=== PATIENT | male | born 1960 | race Caucasian/White ===

== ENCOUNTER 2024-01-30 09:00 | Outpatient (RCR) | payer MEDICARE, BC, SELFPAY | END 2024-05-29 23:59 | disposition home or self-care (01) | PROVIDERS: PCP Family Medicine; Visit Provider Family Medicine | DX: M25.552 Pain in left hip (principal); M16.12 Unilateral primary osteoarthritis, left hip; R29.898 Other symptoms and signs involving the musculoskeletal system; R26.2 Difficulty in walking, not elsewhere classified; Z51.89 Encounter for other specified aftercare | CPT/HCPCS: 97110; 97162 ==

== ENCOUNTER 2024-09-20 11:50 | Outpatient (CLI) | payer MEDICARE, BC, SELFPAY | END 2024-09-20 11:51 | disposition home or self-care (01) | LOC: AMB 09-21 01:11 | PROVIDERS: PCP Family Medicine; Visit Provider Family Medicine | DX: R55 Syncope and collapse (principal) | CPT/HCPCS: A0425; A0427 ==

== ENCOUNTER 2024-09-20 12:33 | Emergency (ER) | payer MEDICARE, BC, SELFPAY ==
[2024-09-20 12:39] VITALS: BP 103/69; PULSE 87; RESP 18; TEMP 36.6; O2SAT 96; BMI 39.2
--- NOTE | 2024-09-20 12:46 | ED.GENADULT ---
HPI - General Adult General Chief complaint: Syncope/Fainted Stated complaint: Syncopal Time Seen by Provider: 09/20/24 12:40 History of Present Illness HPI narrative: Patient presents to the emergency department via EMS after he had an episode of syncope. Patient was exercising with weights and sat in the sauna after. Patient went to join his in the sauna after the hot tub where he had the episode . Patient has had an episode like this in the past where he had an episode of syncope in the hot tub. Patient has a heart valve hx and has regular follow 64-year-old man presenting to the emergency department after an apparent syncopal event. This would not be the 1st time he has passed out. Has been evaluated before for similar having collapsed into a hot tub. Does have a history of hypertension. Was switched from lisinopril to olmesartan due to generally lower blood pressures as he reports it. Today had been in a sauna after exercising with weights. Passed out and told into his spouse who tried to catch him. She is also in the emergency department injured. Had relatively recent echocardiogram and is suspected to have a bicuspid aortic valve but no intervention is planned. Is not experiencing any pain. Did not have chest pain or palpitations. No nausea. Feels pretty good at this point. Was noted by EMS to have rather low pressures initially. Related Data Home Medications ?Medication ?Instructions ?Recorded ?Confirmed rosuvastatin 10 mg tablet 10 mg PO QPM 08/20/24 09/20/24 olmesartan 5 mg tablet 5 mg PO DAILY 09/20/24 09/20/24 Allergies Allergy/AdvReac Type Severity Reaction Status Date / Time No Known Drug Allergies Allergy Verified 09/20/24 12:45 Review of Systems Status of ROS: Reports: 6 or more systems reviewed and unremarkable except as noted in History and below [facility] Social History Smoking Status: Never smoker How often do you have a drink containing alcohol: never How often do you have six or more drinks on one occasion: Never AUDIT-C Alcohol total score: 0 Non-prescribed substance use: denies use service: No Exam Narrative: Exam Narrative: Pleasant. NAD. Alert. Cranial nerves 2-12 intact. Pupils are equal and brisk. Head looks to be atraumatic. Moving all extremities without difficulty. No significant injury on extremity appreciated. Lungs are clear. Heart in regular rate and rhythm. There is a 2/6 systolic murmur across the precordium loudest at the right sternal border. Extremities also without edema. Const: Vital Signs, click to edit/add: Vital Signs - 24 hr 09/20/24 12:39 09/20/24 13:31 Temperature 98 F Pulse Rate [Right Pulse Oximeter] 87 Pulse Rate [orthos tatic lying] 85 Pulse Rate [orthos tatic sitting] 90 Pulse Rate [orthos tatic standing] 89 Respiratory Rate 18 Blood Pressure [Ri ght Upper Arm] 103/69 Blood Pressure [or thostatic lying] 103/64 Blood Pressure [or thostatic sitting] 113/69 Blood Pressure [or thostatic standing ] 111/76 Pulse Oximetry 96 Oxygen Delivery Me thod Room Air Documenting provider has reviewed patient's vital signs: yes Course Vital Signs Vital signs: Initial Vital Signs Temperature 98 F 09/20/24 12:39 Temperature Source Temporal Artery Scan 09/20/24 12:39 Pulse Rate 87 09/20/24 12:39 Pulse Rhythm Regular 09/20/24 12:39 Pulse Strength 3+ Normal 09/20/24 12:39 Respiratory Rate 18 09/20/24 12:39 Blood Pressure 103/69 09/20/24 12:39 Blood Pressure Mean 80 09/20/24 12:39 Blood Pressure Position Semi-Fowlers 09/20/24 12:39 Pulse Oximetry 96 09/20/24 12:39 Oxygen Delivery Method Room Air 09/20/24 12:39 Vital Signs Temperature 98 F 09/20/24 12:39 Pulse Rate 87 09/20/24 12:39 Respiratory Rate 18 09/20/24 12:39 Blood Pressure 103/69 09/20/24 12:39 Pulse Oximetry 96 09/20/24 12:39 Oxygen Delivery Method Room Air 09/20/24 12:39 Temperature 98 F 09/20/24 12:39 Pulse Rate 85 09/20/24 13:31 Respiratory Rate 18 09/20/24 12:39 Blood Pressure 103/64 09/20/24 13:31 Pulse Oximetry 96 09/20/24 12:39 Oxygen Delivery Method Room Air 09/20/24 12:39 Medical Decision Making MDM Narrative Medical decision making narrative: Able to locate labs from about 6 months ago. Looks to have a creatinine of 1.21 which is improved from November of this year. Perhaps this was partly the reason for change in antihypertensive. Apparently was not anemic at that time. Provided some event on monitor during time in the ER or not improving orthostatic early, I think can defer further workup. This is not a new event. This appears to have been a vasovagal event, syncope, precipitated by heat exposure. Did receive some IV hydration and orthostatics are WNL. No events on monitor. Feels well and that he can depart the emergency department. He does go to attend to his spouse in another room. See patient discharge plan for further discussion Yes. Probably would be a good idea to hydrate up before more sauna for hot tub experiences. Take care in transitions today. Medical Records Medical records reviewed: Yes I reviewed the patient's medical records ECG Data Attestation: I personally reviewed and interpreted this ECG as follows: (Normal sinus rhythm at a rate of 84) Discharge Plan Discharge Clinical Impression: Vasovagal syncope Patient Disposition: Home, Self-Care Condition: Improved Additional Instructions: Yes. Probably would be a good idea to hydrate up before more sauna for hot tub experiences. Take care in transitions today. Prescriptions: No Action rosuvastatin 10 mg tablet 10 mg PO QPM olmesartan 5 mg tablet 5 mg PO DAILY Follow Up/Referrals: Jamison Andino MD [Primary Care Provider] - Stand Alone Forms: [employer] Info Instructions
[2024-09-20 13:31] VITALS: BP 103/64; BP 111/76; BP 113/69; PULSE 85; PULSE 89; PULSE 90
== END 2024-09-20 14:14 | disposition home or self-care (01) ==
PROVIDERS: Emergency Provider Family Medicine; PCP Family Medicine
DX: R55 Syncope and collapse (principal)
CPT/HCPCS: 99284

== ENCOUNTER 2025-09-11 14:01 | Outpatient (CLI) | payer MEDICARE, BC, SELFPAY | END 2025-09-11 14:02 | disposition home or self-care (01) | LOC: AMB 09-29 03:09 | PROVIDERS: PCP Family Medicine; Visit Provider Family Medicine | DX: S09.90XA Unspecified injury of head, initial encounter (principal); Y93.64 Activity, baseball; Y92.328 Other athletic field as the place of occurrence of the external cause | CPT/HCPCS: A0998 ==